=== PATIENT | female | born 1960 | race Caucasian/White ===

== ENCOUNTER 2017-05-24 08:08 | Day surgery (SDC) | payer OTHER ==
[~2017-05-24] VITALS: Ht 157.5 cm; Wt 62.5 kg
[2017-05-24] MEDS ORDERED: WATER PILL PO (08:36)
[2017-05-24] MEDS ORDERED: ENALAPRIL PO (08:36)
[2017-05-24] MEDS ORDERED: METFORMIN PO (08:36)
[2017-05-24 08:42] VITALS: Ht 157.5 cm; Wt 62.5 kg
[2017-05-24 08:51] VITALS: BP 137/66; PULSE 69; RESP 16
[2017-05-24] MEDS ORDERED: FENTAnyl 50 MCG/ML VIAL ONE (09:41)
[2017-05-24] MEDS ORDERED: MIDAZOLAM 1 MG/ML 2 ML INJ ONE ×2 (09:41)
--- NOTE | 2017-05-24 09:42 | OPPN ---
Date/Time of Note Date/Time of Note DATE: 05/24/17 TIME: 09:41 Operative Report Preoperative Diagnosis Abdominal pain Chronic heartburn Change in bowel habits Postoperative Diagnosis Hiatal hernia Reflux esophagitis Gastritis with gastric nodules Internal hemorrhoids No colon neoplasm is identified Operation/Procedure Performed Esophagogastroduodenoscopy and biopsy Colonoscopy Surgeon see signature line music assistant None Anesthesia: moderate sedation Estimated blood loss: none Transfusion Required none Specimen Biopsy gastric nodule Grafts/Implants none Complications none BANDAR TRAN MD May 24, 2017 09:42
[2017-05-24 10:10] VITALS: BP 100/58; RESP 14
--- NOTE | 2017-05-24 10:31 | GILP ---
DATE OF PROCEDURE: 05/24/2017 PROCEDURE PERFORMED: 1. Esophagogastroduodenoscopy and biopsy. 2. Colonoscopy. SURGEON: Mack Leger MD. PREOPERATIVE DIAGNOSIS: 1. Abdominal pain. 2. Chronic heartburn. 3. Screening colonoscopy. POSTOPERATIVE DIAGNOSES: 1. Hiatal hernia. 2. Reflux esophagitis. 3. Gastritis with erosions. 4. Gastric nodule and biopsies were taken for histopathology. 5. Colonoscopy all the way to the cecum. 6. Internal hemorrhoids. 7. No colon neoplasm was identified. INDICATION: Is Ms. Sierra Rizvi is a 56-year-old female patient who had upper abdominal pain and chronic heartburn not responding to therapy. The patient also needed a screening colonoscopy. She noticed change in the bowel habits. The procedures and possible complications were well explained to the patient. She understood and consented to the procedure. DESCRIPTION OF PROCEDURE: Under the influence of fentanyl and Versed, the gastroscope was carefully introduced into the esophagus. Under direct vision, it was advanced to the stomach, into the pylorus, into the duodenal bulb, and descending duodenum. FINDINGS: Esophagus, the patient had hiatal hernia and reflux esophagitis. Stomach, she had gastritis with erosions. She also had gastric nodules and biopsies were taken for histopathology. Duodenum was normal. DESCRIPTION OF PROCEDURE: The colonoscope was carefully introduced the rectum. Under direct vision, it was advanced all the way to the cecum. FINDINGS: The patient had internal hemorrhoids. No colon neoplasm was identified. She tolerated the procedures very well. There were no complication from the procedures. At the end of the procedure, she was awake with stable vital signs and she was discharged home in the care of her family. IMPRESSION: Please see postoperative diagnoses. PLAN: 1. Omeprazole 40 mg p.o. q.a.m. 2. Await histopathology report. 3. Next screening colonoscopy in 10 years. Dictated By: MD DOMINIQUE Nieto/joseline/pradeep /Document#: [id number]
== END 2017-05-24 11:28 | disposition home or self-care (01) ==
LOC: GIL 08:08 → EDBD 09:30 → GIL 11:28
PROVIDERS: ATTEND Internal Medicine Gastroenterology
DX: Z12.11 Encounter for screening for malignant neoplasm of colon (principal); K29.30 Chronic superficial gastritis without bleeding; K21.0 Gastro-esophageal reflux disease with esophagitis; K44.9 Diaphragmatic hernia without obstruction or gangrene; K64.8 Other hemorrhoids; E11.9 Type 2 diabetes mellitus without complications; I10 Essential (primary) hypertension
CPT/HCPCS: 43239; 45378; 82962; 88305; 88312; J2250; J3010; Z7610